=== PATIENT | male | born 1965 ===

== ENCOUNTER 2016-06-03 23:02 | Emergency (ER) | payer MEDICARE ==
[2016-06-03 23:16] VITALS: PULSE 99; RESP 18; TEMP 97.8; O2SAT 99
--- NOTE | 2016-06-04 00:27 | ED PDOC ---
HPI: Psych/Substance Abuse Time Seen by Provider: 06/03/16 23:19 Chief Complaint (Nursing): Psychiatric Evaluation Chief Complaint (Provider): medical eval History Per: Patient History/Exam Limitations: no limitations Onset/Duration Of Symptoms: Mins Current Symptoms Are (Timing): Still Present Additional Complaint(s): 50yo male brought to ED by [place] [employer] s/p finding patient pacing back and forth outside speaking non-sensical words and talking to himself. Patient offers no complaints at this time. Denies SI, HI, hallucinations. Patient is uncertain as to why he is in the ED. Past Medical History Reviewed: Historical Data, Nursing Documentation, Vital Signs Vital Signs: Last Vital Signs Temp 97.8 F 06/03/16 23:12 Pulse 99 H 06/03/16 23:12 Resp 18 06/03/16 23:12 BP 193/122 H 06/03/16 23:12 Pulse Ox 99 06/03/16 23:12 - Medical History PMH: Schizophrenia (schizoaffective disorder) Denies: Diabetes, Hepatitis, HIV, HTN, Seizures, Sexually Transmitted Disease - Surgical History Surgical History: No Surg Hx - Family History Family History: States: No Known Family Hx - Home Medications Home Medications: Ambulatory Orders Medication Instructions Recorded No Known Home Med [No Known Home 11/13/14 Med] - Allergies Allergies/Adverse Reactions: Allergies Allergy/AdvReac Type Severity Reaction Status Date / Time No Known Allergies Allergy Verified 03/19/15 14:04 Review of Systems ROS Statement: Except As Marked, All Systems Reviewed And Found Negative Psych: Positive for: Other (no HI, no hallucinations ). Negative for: Suicidal ideation Physical Exam - Reviewed Nursing Documentation Reviewed: Yes Vital Signs Reviewed: Yes - Physical Exam Appears: Positive for: Well, No Acute Distress Head Exam: Positive for: ATRAUMATIC, NORMAL INSPECTION, NORMOCEPHALIC Skin: Positive for: Normal Color, Warm, Dry Eye Exam: Positive for: Normal appearance, EOMI, PERRL ENT: Positive for: Normal ENT Inspection Neck: Positive for: Normal, Painless ROM, Supple Cardiovascular/Chest: Positive for: Regular Rate, Rhythm. Negative for: Murmur , Tachycardia Respiratory: Positive for: Normal Breath Sounds. Negative for: Wheezing, Respiratory Distress Gastrointestinal/Abdominal: Positive for: Normal Exam, Bowel Sounds, Soft. Negative for: Tenderness Back: Positive for: Normal Inspection. Negative for: L CVA Tenderness, R CVA Tenderness Extremity: Positive for: Normal ROM. Negative for: Deformity, Swelling Neurologic/Psych: Positive for: Alert, Oriented - ECG O2 Sat by Pulse Oximetry: 99 Pulse Ox Interpretation: Normal (RA) Medical Decision Making Medical Decision Makin: Impression: 50yo male brought by [facility] for eval of bizarre behavior Plan: alc serum, drug screen, accucheck reassess 0230: Patient remains asymptomatic in the ED with no complaints. Patient known to provider from previous visits and is at his baseline. Patient stable for d/c. Dx: schizoaffective disorder stable Scribe Attestation: Documented by Italo Martin acting as a scribe for Israel Bates MD. Provider Scribe Attestation: All medical record entries made by the Scribe were at my direction and personally dictated by me. I have reviewed the chart and agree that the record accurately reflects my personal performance of the history, physical exam, medical decision making, and the department course for this patient. I have also personally directed, reviewed, and agree with the discharge instructions and disposition. Disposition - Clinical Impression Clinical Impression: Schizoaffective disorder - Patient ED Disposition Is Patient to be Admitted: No - Disposition Referrals: [facility] [Outside] [facility] [Outside] Disposition: Routine/Home Disposition Time: 02:30 Condition: STABLE Instructions: Schizoaffective Disorder (ED) Print Language: COMORAN
[2016-06-04 02:21] VITALS: BP 157/105
== END 2016-06-04 06:21 | disposition home or self-care (01) ==
LOC: H.ER 23:02
DX: F25.9 Schizoaffective disorder, unspecified (principal)
CPT/HCPCS: 82948; 99283; G0480

== ENCOUNTER 2016-06-06 20:52 | Emergency (ER) | payer MEDICARE ==
[2016-06-06 21:13] VITALS: RESP 16; TEMP 97.3
--- NOTE | 2016-06-06 21:58 | ED PDOC ---
HPI: Psych/Substance Abuse Time Seen by Provider: 06/06/16 21:15 Chief Complaint (Nursing): Psychiatric Evaluation Chief Complaint (Provider): Psychiatric Evaluation History Per: Patient History/Exam Limitations: no limitations Suicide/Self Injury Attempted (Context): None Involuntary Hold By: None Additional Complaint(s): Dany Stein is a 50 year old male, with a past medical history inclusive of known schizoaffective disorder per previous records, who presents to the ED on 06/06/16 requesting that he be "checked". Upon evaluation, when asked why, patient begins making up nonsensical stories about his mother, the police and other topics in addition to what appears to be responding to internal stimuli. Denies any past medical history or acute medical complaints at this time, stating that he does not take any medications and "does not want any". PMD: non CPH Past Medical History Reviewed: Historical Data, Nursing Documentation, Vital Signs Vital Signs: Last Vital Signs Temp 97.3 F L 06/06/16 21:07 Pulse 100 H 06/06/16 21:07 Resp 16 06/06/16 21:07 BP Pulse Ox 98 06/06/16 21:07 - Medical History PMH: Schizophrenia (schizoaffective disorder) Denies: Diabetes, Hepatitis, HIV, HTN, Seizures, Sexually Transmitted Disease - Surgical History Surgical History: No Surg Hx - Family History Family History: States: Unknown Family Hx - Home Medications Home Medications: Ambulatory Orders Medication Instructions Recorded No Known Home Med [No Known Home 11/13/14 Med] - Allergies Allergies/Adverse Reactions: Allergies Allergy/AdvReac Type Severity Reaction Status Date / Time No Known Allergies Allergy Verified 03/19/15 14:04 Review of Systems Psych: Positive for: Other (wants to be checked out) Physical Exam - Reviewed Nursing Documentation Reviewed: Yes Vital Signs Reviewed: Yes - Physical Exam Appears: Positive for: Non-toxic, No Acute Distress Head Exam: Positive for: ATRAUMATIC, NORMOCEPHALIC Skin: Positive for: Normal Color, Warm, Dry Cardiovascular/Chest: Positive for: Regular Rate, Rhythm. Negative for: Murmur Respiratory: Positive for: Normal Breath Sounds. Negative for: Respiratory Distress Neurologic/Psych: Positive for: Alert, Mood/Affect (speaking with tangential thoughts and apparent reponses to internal stimuli) - ECG O2 Sat by Pulse Oximetry: 98 (RA) Pulse Ox Interpretation: Normal Medical Decision Making Medical Decision Makin:15 Upon review of previous records, patient is well known to ED for schizoaffective disorder and, as per a chart a few days ago appears to be at his baseline mental status but, as this his his 3rd visit in a couple of weeks will have Crisis evaluate. Vitals are normal. Initial Plan: * Crisis Evaluation Scribe Attestation: Documented by Carolann Street, acting as a scribe for Phil Melo PA-C. Provider Scribe Attestation: All medical record entries made by the Scribe were at my direction and personally dictated by me. I have reviewed the chart and agree that the record accurately reflects my personal performance of the history, physical exam, medical decision making, and the department course for this patient. I have also personally directed, reviewed, and agree with the discharge instructions and disposition. Patient medically cleared for psychiatric evaluation. no medical complaints. Crisis in for evaluation. it is believed that patient is at baseline. he offers no HI or SI. case discussed by crisis with Dr. Fabian and cleared for discharge. patient is happy to be leaving and is seen with steady gait. Disposition - Clinical Impression Clinical Impression: Schizophrenia - Patient ED Disposition Is Patient to be Admitted: No Counseled Patient/Family Regarding: Diagnosis, Need For Followup - Disposition Referrals: [facility] [Outside] [facility] [Outside] Disposition Time: 22:48 Condition: STABLE Instructions: Schizophrenia (ED), Schizoaffective Disorder (ED) Print Language: VIETNAMESE
[2016-06-06 22:39] VITALS: BP 148/79
[2016-06-06 23:04] VITALS: PULSE 90
[2016-06-07 00:10] VITALS: O2SAT 98
== END 2016-06-06 22:48 | disposition home or self-care (01) ==
LOC: H.ER 20:52
DX: F20.9 Schizophrenia, unspecified (principal)

== ENCOUNTER 2017-01-17 21:51 | Emergency (ER) | payer MEDICARE ==
[2017-01-17 22:01] VITALS: BP 152/87; PULSE 98; RESP 18; TEMP 98.2; O2SAT 98
--- NOTE | 2017-01-17 22:36 | ED PDOC ---
HPI: Psych/Substance Abuse Time Seen by Provider: 01/17/17 22:05 Chief Complaint (Nursing): Psychiatric Evaluation Chief Complaint (Provider): Bizarre Behavior ED Caveat: Altered Mental Status History Per: Patient, EMS History/Exam Limitations: clinical condition Additional Complaint(s): 51 year old male with history of schizoaffective disorder brought to the ED by EMS for evaluation of bizarre behavior. Patient was found speaking to himself nonsensically. Patient does not have any specific complaints at this time. He denies drugs or alcohol. Patient is a poor historian due to his mental status. Past Medical History Reviewed: Historical Data, Nursing Documentation, Vital Signs Vital Signs: Last Vital Signs Temp 98.2 F 01/17/17 21:56 Pulse 98 H 01/17/17 21:56 Resp 18 01/17/17 21:56 BP 152/87 H 01/17/17 21:56 Pulse Ox 98 01/17/17 21:56 - Medical History PMH: Schizophrenia (schizoaffective disorder) Denies: Diabetes, Hepatitis, HIV, HTN, Seizures, Sexually Transmitted Disease - Family History Family History: States: Unknown Family Hx - Social History Current smoker - smoking cessation education provided: No Alcohol: None Drugs: Denies - Home Medications Home Medications: Ambulatory Orders Medication Instructions Recorded No Known Home Med [No Known Home 11/13/14 Med] - Allergies Allergies/Adverse Reactions: Allergies Allergy/AdvReac Type Severity Reaction Status Date / Time No Known Allergies Allergy Verified 03/19/15 14:04 Review of Systems Review Of Systems: ROS cannot be obtained secondary to pt's inabilty to answer questions. (Mental Status) Physical Exam - Reviewed Nursing Documentation Reviewed: Yes Vital Signs Reviewed: Yes - Physical Exam Appears: Positive for: Well, Non-toxic, No Acute Distress Head Exam: Positive for: ATRAUMATIC, NORMOCEPHALIC Skin: Positive for: Normal Color, Warm, DRY Eye Exam: Positive for: EOMI, Normal appearance, PERRL Neck: Positive for: Normal, Painless ROM, Supple Cardiovascular/Chest: Positive for: Regular Rate, Rhythm. Negative for: Murmur Respiratory: Positive for: Normal Breath Sounds. Negative for: Respiratory Distress Gastrointestinal/Abdominal: Positive for: Normal Exam, Soft. Negative for: Tenderness Back: Positive for: Normal Inspection. Negative for: L CVA Tenderness, R CVA Tenderness, Other (midline tenderness) Extremity: Positive for: Normal ROM. Negative for: Pedal Edema, Deformity Neurologic/Psych: Positive for: Alert, Mood/Affect (Colorful), Gait, Other ( Patient appears internally preoccupied). Negative for: Motor/Sensory Deficits - Laboratory Results Result Diagrams: 01/17/17 22:30 01/17/17 22:30 - ECG O2 Sat by Pulse Oximetry: 98 Medical Decision Making Medical Decision Making: Impression: 51 year old male in need of crisis evaluation in setting of schizoaffective disorder. Plan: -Labs -Crisis eval 8223 Patient has been evaluated by crisis and was deemed stable for discharge. Dx: schizoaffective disorder ------- Scribe Attestation: Documented by Shankar Sarah, acting as a scribe for Israel Bates MD Provider Scribe Attestation: All medical record entries made by the Scribe were at my direction and personally dictated by me. I have reviewed the chart and agree that the record accurately reflects my personal performance of the history, physical exam, medical decision making, and the department course for this patient. I have also personally directed, reviewed, and agree with the discharge instructions and disposition. Disposition - Clinical Impression Clinical Impression: Schizoaffective disorder - Disposition Disposition: Routine/Home Disposition Time: 22:55 Condition: STABLE Instructions: Schizoaffective Disorder (ED) Forms: [employer] (Panamanian)
[2017-01-17 22:42] LABS: BASO # 0.1 K/uL (0.0-0.2); BASO % 0.6 % (0.0-2.0); EOS # 0.5 K/uL (0.0-0.7); EOS % 5.4 % (0.0-4.0); HEMATOCRIT 43.7 % (35.0-51.0); LYMPH # 2.1 K/uL (1.0-4.3); MEAN CELL VOLUME 91.6 fl (80.0-94.0); MEAN CORPUSCULAR HEMOGLOBIN 30.7 pg (27.0-31.0); MEAN CORPUSCULAR HGB CONC 33.5 g/dL (33.0-37.0); MEAN PLATELET VOLUME 7.6 fl (7.2-11.7); MONO # 0.8 K/uL (0.0-0.8); MONO % 9.1 % (0.0-10.0); NEUT # 5.8 K/uL (1.8-7.0); NEUT % 61.9 % (50.0-75.0); RED CELL DISTRIBUTION WIDTH 13.4 % (11.5-14.5); WHITE BLOOD COUNT 9.3 K/uL (4.8-10.8)
[2017-01-17 22:52] LABS: ALB/GLOB RATIO 1.2 (1.0-2.1); ALCOHOL SERUM < 10 mg/dl (0-10); ALKALINE PHOSPHATASE 103 U/L (38-126); ALT/SGPT 35 U/L (21-72); AST/SGOT 25 U/L (17-59); BILIRUBIN,TOTAL 0.3 mg/dl (0.2-1.3); BLOOD UREA NITROGEN 15 mg/dl (9-20); CALCIUM 8.7 mg/dL (8.4-10.2); CARBON DIOXIDE 28 mmol/L (22-30); CHLORIDE 104 mmol/L (98-107); GFR AFRICAN-AMERICAN > 60; GLUCOSE,RANDOM 100 mg/dL (75-110); POTASSIUM 3.9 MMOL/L (3.6-5.0); SODIUM 142 mmol/l (132-148); TOTAL PROTEIN 7.9 G/DL (6.3-8.2)
== END 2017-01-17 23:38 | disposition home or self-care (01) ==
LOC: H.ER 21:51
DX: F20.9 Schizophrenia, unspecified (principal)
CPT/HCPCS: 80053; 85025; 99282; G0480

== ENCOUNTER 2017-03-10 14:35 | Emergency (ER) | payer MEDICARE ==
[2017-03-10 14:43] VITALS: O2SAT 98
--- NOTE | 2017-03-10 15:13 | ED PDOC ---
HPI: General Adult Time Seen by Provider: 03/10/17 15:03 Chief Complaint (Nursing): Medical Clearance Chief Complaint (Provider): Medical evaluation for incarceration History Per: Patient, EMS History/Exam Limitations: no limitations Onset/Duration Of Symptoms: Days (today) Additional Complaint(s): Pt. had a warrant for his arrest and found walking the street so was arrested. Pt. denies any suicidal or homicidal ideation. No drugs or etoh. Was at AA meeting today. No pain, nausea, weakness, dizziness. Past Medical History Reviewed: Historical Data, Nursing Documentation, Vital Signs Vital Signs: Last Vital Signs Temp 98.0 F 03/10/17 14:42 Pulse 91 H 03/10/17 14:42 Resp 16 03/10/17 14:42 BP 134/86 03/10/17 14:42 Pulse Ox 98 03/10/17 15:16 - Medical History PMH: Schizophrenia (schizoaffective disorder) Denies: Diabetes, Hepatitis, HIV, HTN, Seizures, Sexually Transmitted Disease - Family History Family History: States: Unknown Family Hx - Social History Current smoker - smoking cessation education provided: No Alcohol: None Drugs: Denies - Home Medications Home Medications: Ambulatory Orders Medication Instructions Recorded No Known Home Med [No Known Home 11/13/14 Med] - Allergies Allergies/Adverse Reactions: Allergies Allergy/AdvReac Type Severity Reaction Status Date / Time No Known Allergies Allergy Verified 03/19/15 14:04 Review of Systems ROS Statement: Except As Marked, All Systems Reviewed And Found Negative Physical Exam - Reviewed Nursing Documentation Reviewed: Yes Vital Signs Reviewed: Yes - Physical Exam Appears: Positive for: Well, Non-toxic, No Acute Distress Head Exam: Positive for: ATRAUMATIC, NORMAL INSPECTION, NORMOCEPHALIC Skin: Positive for: Normal Color, Warm, DRY Eye Exam: Positive for: EOMI, Normal appearance, PERRL ENT: Positive for: Normal ENT Inspection Neck: Positive for: Normal, Painless ROM Cardiovascular/Chest: Positive for: Regular Rate, Rhythm Respiratory: Positive for: CNT, Normal Breath Sounds Gastrointestinal/Abdominal: Positive for: Normal Exam, Bowel Sounds, Soft. Negative for: Tenderness Back: Positive for: Normal Inspection. Negative for: L CVA Tenderness, R CVA Tenderness Extremity: Positive for: Normal ROM. Negative for: Tenderness, Pedal Edema Neurologic/Psych: Positive for: Alert, music producer II-XII, Oriented. Negative for: Motor/Sensory Deficits - ECG O2 Sat by Pulse Oximetry: 98 Pulse Ox Interpretation: Normal - Progress ED Course And Treament: 1557: Crisis saw pt. and does not meet criteria for admit. Pt. medically stable. Will dc. AAOx3. Pain free. Tolerated PO. Disposition - Clinical Impression Clinical Impression: Schizoaffective disorder - Patient ED Disposition Is Patient to be Admitted: No Counseled Patient/Family Regarding: Diagnosis, Need For Followup - Disposition Referrals: [facility] [Outside] - 03/11/17 Disposition: Routine/Home Disposition Time: 16:00 Condition: STABLE Additional Instructions: Return if not better in 3 days. You are medically and psychiatrically cleared at this time for incarceration. Instructions: Schizoaffective Disorder (ED)
[2017-03-10 16:14] VITALS: BP 130/81; PULSE 87; RESP 18; TEMP 98
== END 2017-03-10 16:15 ==
LOC: H.ER 14:35
DX: F25.9 Schizoaffective disorder, unspecified

== ENCOUNTER 2017-04-29 21:19 | Emergency (ER) | payer MEDICARE ==
[2017-04-29 21:43] VITALS: BP 138/61; PULSE 94; RESP 17; TEMP 98; O2SAT 97
--- NOTE | 2017-04-29 22:00 | ED PDOC ---
HPI: CCC, URI, Sore Throat Time Seen by Provider: 04/29/17 21:50 Chief Complaint (Nursing): Flu-like Symptoms Chief Complaint (Provider): Cough History Per: Patient History/Exam Limitations: no limitations Onset/Duration Of Symptoms: Days (today) Current Symptoms Are (Timing): Still Present Additional Complaint(s): Cough, nasal congestion, runny nose. Is homeless and they won't take him at assisted today so came here. No weakness. Feels sleepy off and on since he has not been able to sleep due to no place to go. No abd pain, nausea, vomit, diarrhea, weakness. No fever. No drugs or etoh. No suicidal or homicidal thoughts. Past Medical History Vital Signs: Last Vital Signs Temp 98.0 F 04/29/17 21:41 Pulse 94 H 04/29/17 21:41 Resp 17 04/29/17 21:41 BP 138/61 04/29/17 21:41 Pulse Ox 97 04/29/17 21:41 - Medical History PMH: Schizophrenia (schizoaffective disorder) Denies: Hepatitis, HIV, HTN, Seizures, Sexually Transmitted Disease - Family History Family History: States: Unknown Family Hx - Home Medications Home Medications: Ambulatory Orders Medication Instructions Recorded No Known Home Med [No Known Home 11/13/14 Med] - Allergies Allergies/Adverse Reactions: Allergies Allergy/AdvReac Type Severity Reaction Status Date / Time No Known Allergies Allergy Verified 04/29/17 21:43 Review of Systems Constitutional: Negative for: Fever, Weakness ENT: Positive for: Nose Pain, Nose Discharge, Nose Congestion Cardiovascular: Negative for: Chest Pain Respiratory: Positive for: Cough. Negative for: Shortness of Breath Gastrointestinal: Negative for: Nausea, Vomiting, Abdominal Pain Genitourinary Male: Negative for: Dysuria Musculoskeletal: Negative for: Neck Pain, Arm Pain Skin: Negative for: Rash Neurological: Negative for: Weakness, Dizziness Physical Exam - Reviewed Nursing Documentation Reviewed: Yes Vital Signs Reviewed: Yes - Physical Exam Appears: Positive for: Non-toxic, No Acute Distress Head Exam: Positive for: ATRAUMATIC, NORMAL INSPECTION, NORMOCEPHALIC Skin: Positive for: Normal Color, Warm, DRY Eye Exam: Positive for: EOMI, Normal appearance, PERRL ENT: Positive for: Nasal Congestion Neck: Positive for: Normal, Painless ROM, Supple Cardiovascular/Chest: Positive for: Regular Rate, Rhythm Respiratory: Positive for: Normal Breath Sounds Back: Positive for: Normal Inspection Extremity: Positive for: Normal ROM. Negative for: Tenderness, Pedal Edema Neurologic/Psych: Positive for: Alert, cfo II-XII, Oriented. Negative for: Motor/Sensory Deficits, Aphasia, Facial Droop - ECG O2 Sat by Pulse Oximetry: 97 Pulse Ox Interpretation: Normal - Progress ED Course And Treament: 2200: Stable. AAOx3. Pain free. Tolerated PO. Fu with pcp. Disposition - Clinical Impression Clinical Impression: URI (upper respiratory infection) - Patient ED Disposition Is Patient to be Admitted: No Counseled Patient/Family Regarding: Diagnosis, Need For Followup - Disposition Referrals: [facility] [Outside] - 04/30/17 Disposition: Routine/Home Disposition Time: 22:01 Condition: STABLE Additional Instructions: Return if not better in 3 days. Instructions: Upper Respiratory Infection (ED)
== END 2017-04-29 23:15 | disposition home or self-care (01) ==
LOC: H.ER 21:19
DX: J06.9 Acute upper respiratory infection, unspecified (principal); Z59.0 Homelessness

== ENCOUNTER 2017-05-26 23:27 | Emergency (ER) | payer MEDICARE ==
--- NOTE | 2017-05-27 00:06 | ED PDOC ---
HPI: Psych/Substance Abuse Time Seen by Provider: 05/26/17 23:35 Chief Complaint (Nursing): Psychiatric Evaluation Chief Complaint (Provider): EDP Additional Complaint(s): 51 y/o male history of schizoaffective disorder brought in by EMS for evaluation. Patient was trying to get in to mother's home but she would not let him in so there was an argument and police were called. Patient with nonsensical stories about mother and school and police, which appears to be his baseline as per chart/previous visits. Denies suicidal/homicidal ideations, drug /alcohol use, acute physical complaints. Past Medical History Reviewed: Historical Data, Nursing Documentation, Vital Signs Vital Signs: Last Vital Signs Temp Pulse 106 H 05/26/17 23:29 Resp 20 05/26/17 23:29 BP 199/117 H 05/26/17 23:29 Pulse Ox 99 05/26/17 23:29 - Medical History PMH: Diabetes (noncompliant), Schizophrenia (schizoaffective disorder) Denies: Hepatitis, HIV, HTN, Seizures, Sexually Transmitted Disease - Surgical History Surgical History: No Surg Hx - Family History Family History: States: Unknown Family Hx - Home Medications Home Medications: Ambulatory Orders Medication Instructions Recorded No Known Home Med [No Known Home 11/13/14 Med] - Allergies Allergies/Adverse Reactions: Allergies Allergy/AdvReac Type Severity Reaction Status Date / Time No Known Allergies Allergy Verified 05/26/17 23:29 Review of Systems ROS Statement: Except As Marked, All Systems Reviewed And Found Negative Psych: Positive for: Psychosis Physical Exam - Reviewed Nursing Documentation Reviewed: Yes Vital Signs Reviewed: Yes - Physical Exam Appears: Positive for: Well, Non-toxic, No Acute Distress Head Exam: Positive for: ATRAUMATIC, NORMAL INSPECTION, NORMOCEPHALIC Skin: Positive for: Normal Color Eye Exam: Positive for: Normal appearance ENT: Positive for: Normal ENT Inspection Cardiovascular/Chest: Positive for: Regular Rate, Rhythm Respiratory: Positive for: Normal Breath Sounds Gastrointestinal/Abdominal: Positive for: Normal Exam Back: Positive for: Normal Inspection Extremity: Positive for: Normal ROM Neurologic/Psych: Positive for: Alert, Oriented - ECG O2 Sat by Pulse Oximetry: 99 - Progress ED Course And Treament: accucheck, crisis eval Patient evaluated by shed workers supervisor; does not meet criteria for admission at this time as per Dr. Bruner. Patient was educated on elevated blood sugar and advised to follow up at [facility]. Patient stable for discharge Return precautions given Disposition - Clinical Impression Clinical Impression: Schizoaffective disorder, Hyperglycemia - Patient ED Disposition Is Patient to be Admitted: No Counseled Patient/Family Regarding: Studies Performed, Diagnosis, Need For Followup - Disposition Referrals: [facility] [Outside] Disposition: Routine/Home Disposition Time: 02:39 Condition: STABLE Instructions: Schizoaffective Disorder, Hyperglycemia, Adult Forms: [employer] ([place])
[2017-05-27 02:31] VITALS: BP 134/85; PULSE 88; RESP 18; TEMP 98.4
[2017-05-27 02:36] VITALS: O2SAT 99
== END 2017-05-27 03:05 | disposition home or self-care (01) ==
LOC: H.ER 23:27
DX: E11.65 Type 2 diabetes mellitus with hyperglycemia (principal); F25.9 Schizoaffective disorder, unspecified; Z91.14 Patient's other noncompliance with medication regimen

== ENCOUNTER 2017-10-19 04:18 | Emergency (ER) | payer MEDICARE ==
[2017-10-19 05:17] LABS: BASO # 0.1 K/uL (0.0-0.2); BASO % 0.7 % (0.0-2.0); EOS # 0.4 K/uL (0.0-0.7); EOS % 4.5 % (0.0-4.0); HEMOGLOBIN 14.1 g/dL (12.0-18.0); LYMPH # 1.4 K/uL (1.0-4.3); LYMPH % 14.9 % (20.0-40.0); MEAN CELL VOLUME 91.8 fl (80.0-94.0); MEAN CORPUSCULAR HEMOGLOBIN 30.8 pg (27.0-31.0); MEAN CORPUSCULAR HGB CONC 33.6 g/dL (33.0-37.0); MEAN PLATELET VOLUME 7.7 fl (7.2-11.7); MONO # 0.8 K/uL (0.0-0.8); MONO % 8.4 % (0.0-10.0); NEUT # 6.8 K/uL (1.8-7.0); NEUT % 71.5 % (50.0-75.0); NRBC % 0.1 % (0.0-0.0); RBC 4.57 Mil/uL (4.40-5.90); RED CELL DISTRIBUTION WIDTH 13.4 % (11.5-14.5); WHITE BLOOD COUNT 9.5 K/uL (4.8-10.8)
[2017-10-19 05:25] LABS: BLOOD UREA NITROGEN 12 mg/dl (9-20); CALCIUM 9.3 mg/dL (8.4-10.2); GFR AFRICAN-AMERICAN > 60; GFR NON-AFRICAN AMERICAN > 60
[2017-10-19 05:35] LABS: ACETAMINOPHEN < 10.0 ug/ml (10.0-30.0); SALICYLATE < 1.0 mg/dl
--- NOTE | 2017-10-19 05:45 | ED PDOC ---
HPI: Psych/Substance Abuse Time Seen by Provider: 10/19/17 04:28 Chief Complaint (Nursing): Substance Abuse Chief Complaint (Provider): Medical and Psychiatric clearance History Per: Patient History/Exam Limitations: no limitations Additional Complaint(s): Patient is a 52 y/o male with unknown medical history who presents to the ED for medical and psychiatric clearance. Patient has no medical complaints and denies homicidal or suicidal ideation. Past Medical History Reviewed: Historical Data, Nursing Documentation, Vital Signs Vital Signs: Last Vital Signs Temp 97.6 F 10/19/17 04:25 Pulse 82 10/19/17 04:25 Resp 16 10/19/17 04:25 BP 167/102 H 10/19/17 04:25 Pulse Ox 100 10/19/17 04:25 - Medical History PMH: Diabetes (noncompliant), Schizophrenia (schizoaffective disorder) Denies: Hepatitis, HIV, HTN, Seizures, Sexually Transmitted Disease - Family History Family History: States: Unknown Family Hx - Home Medications Home Medications: Ambulatory Orders Medication Instructions Recorded No Known Home Med [No Known Home 11/13/14 Med] - Allergies Allergies/Adverse Reactions: Allergies Allergy/AdvReac Type Severity Reaction Status Date / Time No Known Allergies Allergy Verified 10/19/17 04:24 Review of Systems ROS Statement: Except As Marked, All Systems Reviewed And Found Negative Constitutional: Negative for: Fever Psych: Negative for: Suicidal ideation Physical Exam - Reviewed Nursing Documentation Reviewed: Yes Vital Signs Reviewed: Yes - Physical Exam Appears: Positive for: Non-toxic, No Acute Distress Head Exam: Positive for: ATRAUMATIC, NORMOCEPHALIC Skin: Positive for: Normal Color, Warm, Dry Eye Exam: Positive for: EOMI, Normal appearance, PERRL Neck: Positive for: Normal, Painless ROM, Supple Cardiovascular/Chest: Positive for: Regular Rate, Rhythm Respiratory: Positive for: CNT, Normal Breath Sounds Gastrointestinal/Abdominal: Positive for: Normal Exam, Soft. Negative for: Tenderness Back: Positive for: Normal Inspection. Negative for: L CVA Tenderness, R CVA Tenderness Extremity: Positive for: Normal ROM. Negative for: Pedal Edema, Deformity Neurologic/Psych: Positive for: Alert, Oriented (x3), Mood/Affect (strange), Other (occasionally rambles incoherently). Negative for: Motor/Sensory Deficits - Laboratory Results Result Diagrams: 10/19/17 05:14 10/19/17 05:14 - ECG O2 Sat by Pulse Oximetry: 100 (RA) Pulse Ox Interpretation: Normal Medical Decision Making Medical Decision Making: Time: 04:39 A/P: 52 y/o male presenting for med and psych clearance. Patient is not in acute distress and is not in apparent risk of danger to himself or others. Will obtain medical and psychiatric clearance for incarceration --Crisis Eval --Drug screen 545 Patient is medically cleared, psychiatrically cleared by crisis. ----- Scribe Attestation: Documented by Constantine Cabrera, acting as a scribe for Jose Luis Tavarez MD. Provider Scribe Attestation: All medical record entries made by the Scribe were at my direction and personally dictated by me. I have reviewed the chart and agree that the record accurately reflects my personal performance of the history, physical exam, medical decision making, and the department course for this patient. I have also personally directed, reviewed, and agree with the discharge instructions and disposition. Disposition - Clinical Impression Clinical Impression: Medical clearance for incarceration, Schizophrenia, Adjustment disorder - Disposition Referrals: [facility] [Outside] Disposition: Routine/Home Disposition Time: 05:45 Condition: GOOD Additional Instructions: Patient is medically and psychiatrically cleared for incarceration. Instructions: Schizophrenia, Adjustment Disorder Forms: [employer] (Turkmen)
[2017-10-19 05:47] VITALS: BP 149/90; PULSE 70; RESP 18; TEMP 97.9
[2017-10-19 05:48] VITALS: O2SAT 100
== END 2017-10-19 05:47 ==
LOC: H.ER 04:18
DX: F20.9 Schizophrenia, unspecified (principal); F43.20 Adjustment disorder, unspecified; E11.9 Type 2 diabetes mellitus without complications
CPT/HCPCS: 80048; 85025; 99282; G0480

== ENCOUNTER 2017-11-12 08:17 | Emergency (ER) | payer MEDICARE ==
[2017-11-12 08:20] VITALS: BMI 28.3
[2017-11-12 08:21] VITALS: RESP 20; TEMP 98.3
[2017-11-12 08:45] VITALS: BP 144/98; PULSE 95; O2SAT 97
[2017-11-12 09:22] LABS: BASO # 0.1 K/uL (0.0-0.2); BASO % 0.7 % (0.0-2.0); EOS # 0.2 K/uL (0.0-0.7); EOS % 1.9 % (0.0-4.0); HEMOGLOBIN 16.5 g/dL (12.0-18.0); LYMPH % 9.4 % (20.0-40.0); MEAN CELL VOLUME 92.3 fl (80.0-94.0); MEAN CORPUSCULAR HEMOGLOBIN 30.7 pg (27.0-31.0); MEAN CORPUSCULAR HGB CONC 33.2 g/dL (33.0-37.0); MEAN PLATELET VOLUME 8.5 fl (7.2-11.7); MONO # 0.5 K/uL (0.0-0.8); MONO % 5.2 % (0.0-10.0); NEUT # 8.7 K/uL (1.8-7.0); NEUT % 82.8 % (50.0-75.0); PLATELET COUNT 203 K/uL (130-400); RBC 5.39 Mil/uL (4.40-5.90); RED CELL DISTRIBUTION WIDTH 14.1 % (11.5-14.5); WHITE BLOOD COUNT 10.5 K/uL (4.8-10.8)
[2017-11-12 09:44] LABS: ALB/GLOB RATIO 1.3 (1.0-2.1); ALBUMIN 4.5 g/dL (3.5-5.0); ALT/SGPT 30 U/L (21-72); AST/SGOT 25 U/L (17-59); BLOOD UREA NITROGEN 10 mg/dl (9-20); CALCIUM 9.5 mg/dL (8.4-10.2); GFR NON-AFRICAN AMERICAN > 60
--- NOTE | 2017-11-12 09:47 | CT ---
Date of service: 11/12/2017 PROCEDURE: CT HEAD WITHOUT CONTRAST. HISTORY: r/o ICH COMPARISON: 03/20/2008 TECHNIQUE: Axial computed tomography images were obtained through the head/brain without intravenous contrast. Radiation dose: Total exam DLP = 1847.84 mGy-cm. This CT exam was performed using one or more of the following dose reduction techniques: Automated exposure control, adjustment of the mA and/or kV according to patient size, and/or use of iterative reconstruction technique. FINDINGS: HEMORRHAGE: No intracranial hemorrhage. BRAIN: No mass effect or edema. No atrophy or chronic microvascular ischemic changes. VENTRICLES: Unremarkable. No hydrocephalus. CALVARIUM: Unremarkable. PARANASAL SINUSES: Unremarkable as visualized. No significant inflammatory changes. MASTOID AIR CELLS: Unremarkable as visualized. No inflammatory changes. OTHER FINDINGS: None. IMPRESSION: Normal CT of the Head. No acute intracranial hemorrhage.
--- NOTE | 2017-11-12 09:50 | CT ---
Date of service: 11/12/2017 PROCEDURE: CT Cervical Spine without contrast HISTORY: trauma r/o fx COMPARISON: None available. TECHNIQUE: Axial computed tomography images were obtained of the cervical spine without the use of intravenous contrast. Coronal and sagittal reformatted images were created and reviewed. Radiation dose: Total exam DLP = 334.77 mGy-cm. This CT exam was performed using one or more of the following dose reduction techniques: Automated exposure control, adjustment of the mA and/or kV according to patient size, and/or use of iterative reconstruction technique. FINDINGS: VERTEBRAE: The vertebral bodies are maintained in height. Normal alignment is maintained. There is reversal of normal lordotic curvature of the cervical spine which may indicate muscular spasm. The atlantoaxial articulation and odontoid process are intact. DISCS/SPINAL CANAL/NEURAL FORAMINA: There is narrowing of the C4-5, C5-6 and C6-7 intervertebral disc spaces consistent with degenerative disc disease. Bilateral neural foraminal stenosis is noted at these affected levels. There is mild central spinal stenosis noted at the C4-5 and C5-6 levels. Delete PARASPINAL SOFT TISSUES: Unremarkable. OTHER FINDINGS: None. IMPRESSION: No fracture/ dislocation. Multilevel degenerative disc disease with multilevel bilateral neural foraminal stenosis and mild central spinal stenosis at C4-5 and C5-6. Possible muscular spasm.
--- NOTE | 2017-11-12 09:57 | ED PDOC ---
HPI: General Adult Time Seen by Provider: 11/12/17 08:29 Chief Complaint (Nursing): Medical Clearance Chief Complaint (Provider): medical and psychiatric clearance History Per: Patient History/Exam Limitations: no limitations Current Symptoms Are (Timing): Still Present Recently: Seen In ED Additional Complaint(s): 52yo male arrives under police custody for medical and psychiatric clearance. Patient is uncooperative, displaying anger towards police and not providing further history to MD. Per report from police was resisting arrest and struck back of head on ground. Past Medical History Reviewed: Historical Data, Nursing Documentation, Vital Signs Vital Signs: Last Vital Signs Temp 98.3 F 11/12/17 08:36 Pulse 95 H 11/12/17 08:36 Resp 20 11/12/17 08:36 BP 144/98 H 11/12/17 08:36 Pulse Ox 97 11/12/17 09:57 - Medical History PMH: Diabetes (noncompliant), Schizophrenia (schizoaffective disorder) Denies: Hepatitis, HIV, HTN, Seizures, Sexually Transmitted Disease - Family History Family History: States: Unknown Family Hx - Home Medications Home Medications: Ambulatory Orders Medication Instructions Recorded No Known Home Med [No Known Home 11/13/14 Med] - Allergies Allergies/Adverse Reactions: Allergies Allergy/AdvReac Type Severity Reaction Status Date / Time No Known Allergies Allergy Verified 11/12/17 08:36 Review of Systems Review Of Systems: ROS cannot be obtained secondary to pt's inabilty to answer questions. (uncooperative) Physical Exam - Reviewed Nursing Documentation Reviewed: Yes Vital Signs Reviewed: Yes - Physical Exam Appears: Positive for: Well, Non-toxic, No Acute Distress Head Exam: Positive for: NORMOCEPHALIC. Negative for: ATRAUMATIC (contusions posterior scalp) Skin: Positive for: Normal Color, Warm, DRY Eye Exam: Positive for: EOMI, Normal appearance, PERRL ENT: Positive for: Normal ENT Inspection Neck: Positive for: Normal, Painless ROM. Negative for: Pain On Movement Of Neck Cardiovascular/Chest: Positive for: Regular Rate, Rhythm Respiratory: Positive for: CNT, Normal Breath Sounds Gastrointestinal/Abdominal: Positive for: Soft. Negative for: Tenderness Back: Positive for: Normal Inspection. Negative for: L CVA Tenderness, R CVA Tenderness, Vertebral Tenderness Extremity: Positive for: Normal ROM. Negative for: Tenderness, Deformity, Swelling Neurologic/Psych: Positive for: Alert, real estate consultant II-XII, Oriented, Mood/Affect ( agressive ). Negative for: Motor/Sensory Deficits, Facial Droop - Laboratory Results Result Diagrams: 11/12/17 09:09 11/12/17 09:09 - ECG O2 Sat by Pulse Oximetry: 97 Medical Decision Making Medical Decision Making: labs obtained and clinically unremarkable etoh neg CT brain and CSpine obtained and report reviewed Crisis eval performed and cleared for DC Dr Castro DC to police custody Disposition - Clinical Impression Clinical Impression: Schizoaffective disorder, Head injury - Patient ED Disposition Is Patient to be Admitted: No - Disposition Referrals: [facility] [Outside] Disposition: Discharged/Transfer to Law Enforcement Disposition Time: 11:30 Condition: STABLE Additional Instructions: Medically and psychiatrically stable for incarceration/police custody at this time. Instructions: General (DC), Closed Head Injury, Schizoaffective Disorder (DC) Forms: [employer] (Bolivian) Print Language: ARGENTINE
[2017-11-12 10:04] LABS: BARBITURATES, UR NEGATIVE (NEGATIVE); BENZODIAZEPINES, UR NEGATIVE (NEGATIVE); OPIATES, UR NEGATIVE (NEGATIVE); PHENCYCLIDINE, UR NEGATIVE (NEGATIVE)
[2017-11-12 10:39] LABS: BASOPHIL 1 % (0-2); EOSINOPHIL 2 % (0-7); LYMPHOCYTE 7 % (20-50); MONOCYTE 4 % (0-10); NEUTROPHIL 85 % (42-75); PLATELET ESTIMATE NORMAL (NORMAL); REACTIVE LYMPHOCYTES 1 % (0-0); TOTAL CELLS COUNTED 100
[2017-11-12 10:40] LABS: PLATELET CLUMPS PRESENT; TOXIC GRANULATION PRESENT
== END 2017-11-12 12:25 ==
LOC: H.ER 08:17
DX: F25.9 Schizoaffective disorder, unspecified (principal); S09.90XA Unspecified injury of head, initial encounter; Y35.813A Legal intervention involving manhandling, suspect injured, initial encounter; Y92.89 Other specified places as the place of occurrence of the external cause; E11.9 Type 2 diabetes mellitus without complications
CPT/HCPCS: 70450; 72125; 80053; 82948; 85025; 99282; G0480

== ENCOUNTER 2018-05-10 09:57 | Emergency (ER) | payer MEDICARE ==
[2018-05-10 09:57] VITALS: BMI 28.3
[2018-05-10] MEDS ORDERED: Albuterol-Ipratrop 3 mg / 0.5 (3 ml) UD ONE ×3 (10:40→13:51)
[2018-05-10] MEDS ORDERED: Albuterol-Ipratrop 3 mg / 0.5 (3 ml) UD INH STA ×5 (10:50→13:29)
[2018-05-10] MEDS ORDERED: methylPREDNISolone 125 MG in Sodium Chloride 0.9% 50 ML IV STA (10:58)
--- NOTE | 2018-05-10 11:04 | ED PDOC ---
HPI: General Adult Chief Complaint (Provider): sob History Per: Patient (52 y/o male h/o ASthma/copd with sob and nonproductive cough x 3 days. NO fevers or chills. No vomiting. Does not have inhaler at home.) <Lucille Zimmerman B - Last Filed: 05/10/18 19:06> <Lalitha Horvath Y - Last Filed: 05/11/18 12:16> Time Seen by Provider: 05/10/18 11:03 Chief Complaint (Nursing): Respiratory Distress Against Medical Advice - AMA Patient Left Against Medical Advice: The patient declines admission to the hospital and wishes to leave the Emergency Department. This action is against my medical advice. This decision was made with informed refusal. The patient was told that admission to the hospital is necessary. Explanation of the reasons why were discussed. The risks of leaving were explained to the patient and include, but are not limited to, worsening of known or currently unknown conditions, permanent disability and from undiagnosed or untreated conditions. The patient has the capacity to make this informed decision and understands my explanation of the current medical problem and risks of leaving. The patient voluntarily accepts these risks and signed an AMA form documenting o ur conversation. The patient was given the opportunity to ask questions and reconsider. The patient was encouraged to return to the Emergency Department at any time for further care. <Lucille Zimmerman - Last Filed: 05/10/18 19:06> - AMA Patient Left Against Medical Advice: The patient declines admission to the hospital and wishes to leave the Emergency Department. This action is against my medical advice. This decision was made with informed refusal. The patient was told that admission to the hospital is necessary. Explanation of the reasons why were discussed. The risks of leaving were explained to the patient and include, but are not limited to, worsening of known or currently unknown conditions, permanent disability and from undiagnosed or untreated conditions. The patient has the capacity to make this informed decision and understands my explanation of the current medical problem and risks of leaving. The patient voluntarily accepts these risks and signed an AMA form documenting our conversation. The patient was given the opportunity to ask questions and reconsider. The patient was encouraged to return to the Emergency Department at any time for further care. <Lalitha Horvath Y - Last Filed: 05/11/18 12:16> Supervising Attending Note - Supervising Attending Note The Documented history was done by the: Physician Oil Field Equipment Mechanic The documented physical exam was done by the: Physician Oil Field Equipment Mechanic The documented procedures were done by the: Physician Oil Field Equipment Mechanic - Attestation: I have personally seen and examined this patient.: Yes I have fully participated in the care of the patient.: Yes I have reviewed all pertinent clinical information, including history, physical exam and plan: Yes - Notes: Notes:: pt seen and evaluated by me yesterday upon pt arrival in the ER 05/10/18) pt was sob, presumably bad asthma, needed BIPAP and admitted to ICU. agree with Lucille Zimmerman plan. <Lalitha Horvath Y - Last Filed: 05/11/18 12:16> Past Medical History Reviewed: Historical Data, Nursing Documentation, Vital Signs Vital Signs: Last Vital Signs Temp 98.3 F 05/10/18 10:05 Pulse 100 H 05/10/18 10:05 Resp 30 H 05/10/18 10:41 BP 176/73 H 05/10/18 10:05 Pulse Ox 95 05/10/18 10:41 - Medical History PMH: Asthma, Diabetes (noncompliant), Schizophrenia (schizoaffective disorder) Denies: Hepatitis, HIV, HTN, Seizures, Sexually Transmitted Disease - Family History Family History: States: Unknown Family Hx - Immunization History Hx Tetanus Toxoid Vaccination: No Hx Influenza Vaccination: No Hx Pneumococcal Vaccination: No <Lucille Zimmerman B - Last Filed: 05/10/18 19:06> Vital Signs: Last Vital Signs Temp 98.1 F 05/10/18 14:00 Pulse 89 05/10/18 15:11 Resp 21 05/10/18 14:00 BP 140/70 05/10/18 14:00 Pulse Ox 95 05/10/18 19:06 <Lalitha Horvath Y - Last Filed: 05/11/18 12:16> - Home Medications Home Medications: Ambulatory Orders Medication Instructions Recorded Albuterol 0.083% [Albuterol 0.083% 2.5 mg IH Q8 PRN #100 neb 05/10/18 Inhal Darcy (2.5 mg/3 ml) UD] Albuterol HFA [Ventolin HFA 90 2 puff IH [id number] PRN #1 inh 05/10/18 mcg/actuation (8 g)] Mask, Face [Nebulizer Aerosol Mask 1 dev XX PRN PRN #1 dev 05/10/18 Adult] Nebulizer [Aeroeclipse II] 1 each MC Q8 PRN #1 each 05/10/18 predniSONE [Prednisone] 3 tab PO DAILY #12 tab 05/10/18 - Allergies Allergies/Adverse Reactions: Allergies Allergy/AdvReac Type Severity Reaction Status Date / Time No Known Allergies Allergy Verified 11/12/17 08:36 Review of Systems ROS Statement: Except As Marked, All Systems Reviewed And Found Negative Respiratory: Positive for: Cough, Shortness of Breath <Lucille Zimmerman B - Last Filed: 05/10/18 19:06> Physical Exam - Reviewed Nursing Documentation Reviewed: Yes Vital Signs Reviewed: Yes - Physical Exam Appears: Positive for: Well, Non-toxic, No Acute Distress, In Acute Distress (moderate respiratory distress) Head Exam: Positive for: ATRAUMATIC, NORMAL INSPECTION, NORMOCEPHALIC Skin: Positive for: Normal Color, Warm, DRY Eye Exam: Positive for: EOMI, Normal appearance, PERRL ENT: Positive for: Normal ENT Inspection Neck: Positive for: Normal, Painless ROM Cardiovascular/Chest: Positive for: Regular Rate, Rhythm Respiratory: Positive for: Decreased Breath Sounds Gastrointestinal/Abdominal: Positive for: Normal Exam, Soft Back: Positive for: Normal Inspection Extremity: Positive for: Normal ROM Neurologic/Psych: Positive for: Alert, Oriented <Lucille Zimmerman B - Last Filed: 05/10/18 19:06> - Laboratory Results Result Diagrams: 05/10/18 12:00 05/10/18 12:00 - ECG O2 Sat by Pulse Oximetry: 95 - Progress ED Course And Treament: solumedrol 125 mg iv x 1 dose Duoneb x 3 MG 2 gm iv ordered. Patient states he feels improved but looks persistently sob. Bipap ordered at 11:50am Abg ordered 30 minutes after start of bipap and compared to initial abg done p rior to bipap. pH noted 7.29 decreased from initial 7.4. Bipap reduced to 60% O2. NS 1 liter 500 ml per hour d/w Dr. Gage d/w Dr. Bruno. Will change setting 04/08/15 after discussion with him. aDmit to ICU at 15:30 Patient improved in ED. Has removed bipap mask and urinated on floor. Demands to be discharged. Requests AMA paperwork. AMA paperwork signs at 16:33p - Critical Care Total Time (In Min): 30 <Lucille Zimmerman B - Last Filed: 05/10/18 19:06> - Laboratory Results Result Diagrams: 05/10/18 12:00 05/10/18 12:00 Lab Results: pCO2 64 mm/Hg (35-45) H 05/10/18 12:33 pO2 544 mm/Hg (80-100) H 05/10/18 12:33 HCO3 26.8 mmol/L (21-28) 05/10/18 12:33 ABG pH 7.29 (7.35-7.45) L 05/10/18 12:33 ABG Total CO2 32.8 mmol/L (22-28) H 05/10/18 12:33 ABG O2 Saturation 100.2 % (95-98) H 05/10/18 12:33 ABG O2 Content 19.2 ML/dL (15-23) 05/10/18 12:33 ABG Base Excess 2.5 mmol/L (-2.0-3.0) 05/10/18 12:33 ABG Hemoglobin 13.5 g/dL (11.7-17.4) 05/10/18 12:33 ABG Carboxyhemoglobin 4.0 % (0.5-1.5) H 05/10/18 12:33 POC ABG HHb (Measured) -0.2 % (0.0-5.0) L 05/10/18 12:33 ABG Methemoglobin 2.8 % (0.0-3.0) 05/10/18 12:33 ABG O2 Capacity 19.2 mL/dL (16-24) 05/10/18 12:33 Vargas Test Yes 05/10/18 12:33 ABG Potassium 3.8 mmol/L (3.6-5.2) 05/10/18 12:02 A-a O2 Difference 89.0 mm/Hg 05/10/18 12:33 Hgb O2 Saturation 93.4 % (95.0-98.0) L 05/10/18 12:33 Sodium 131.0 mmol/L (132-148) L 05/10/18 12:02 Chloride 97.0 mmol/L (98-107) L 05/10/18 12:02 Glucose 314 mg/dL (75-110) H 05/10/18 12:02 Lactate 1.5 mmol/L (0.7-2.1) 05/10/18 12:02 Mechanical Rate 12 05/10/18 12:33 FiO2 100.0 % 05/10/18 12:33 Inspiratory BiPAP 12 05/10/18 12:33 Expiratory BiPAP 5 05/10/18 12:33 Troponin I < 0.0120 ng/mL (0.00-0.120) 05/10/18 12:00 NT-Pro-B Natriuret Pep 523 pg/ml (0-900) 05/10/18 12:00 Total Bilirubin 0.4 mg/dl (0.2-1.3) 05/10/18 12:00 AST 37 U/L (17-59) 05/10/18 12:00 ALT 33 U/L (21-72) 05/10/18 12:00 Alkaline Phosphatase 101 U/L (38-126) 05/10/18 12:00 Total Protein 8.0 G/DL (6.3-8.2) 05/10/18 12:00 Albumin 4.3 g/dL (3.5-5.0) 05/10/18 12:00 Globulin 3.7 gm/dL (2.2-3.9) 05/10/18 12:00 Albumin/Globulin Ratio 1.2 (1.0-2.1) 05/10/18 12:00 <Lalitha Horvath Y - Last Filed: 05/11/18 12:16> Disposition - Patient ED Disposition Is Patient to be Admitted: Yes - Disposition Disposition: Routine/Home Disposition Time: 16:38 <Lucille Zimmerman B - Last Filed: 05/10/18 19:06> <Lalitha Horvath - Last Filed: 05/11/18 12:16> - Clinical Impression Clinical Impression: Asthma exacerbation, Respiratory distress, Left against medical advice - Disposition Condition: FAIR
[2018-05-10] MEDS ORDERED: Magnesium Sulfate 2 gm/50 ml 2 GM/50 ML BAG IVPB ONE (11:14)
[2018-05-10] MEDS ORDERED: Magnesium Sulfate 2 gm/50 ml 2 GM/50 ML BAG ONE (11:24)
[2018-05-10 12:06] LABS: ABG ALLEN TEST YES; ARTERIAL BLOOD GAS HCO3 31.5 mmol/L (21-28); ARTERIAL BLOOD GAS O2 SAT 93.8 % (95-98); ARTERIAL BLOOD GAS PCO2 54 mm/Hg (35-45); ARTERIAL BLOOD GAS PH 7.42 (7.35-7.45); ARTERIAL BLOOD GAS PO2 54 mm/Hg (80-100); ARTERIAL BLOOD GAS TCO2 36.7 mmol/L (22-28)
[2018-05-10 12:17] LABS: BASO # 0.1 K/uL (0.0-0.2); BASO % 0.6 % (0.0-2.0); EOS # 0.1 K/uL (0.0-0.7); HEMOGLOBIN 12.4 g/dL (12.0-18.0); LYMPH % 8.7 % (20.0-40.0); MEAN CORPUSCULAR HEMOGLOBIN 29.8 pg (27.0-31.0); MEAN CORPUSCULAR HGB CONC 32.7 g/dL (33.0-37.0); MEAN PLATELET VOLUME 8.8 fl (7.2-11.7); MONO # 1.1 K/uL (0.0-0.8); MONO % 9.2 % (0.0-10.0); NEUT # 9.3 K/uL (1.8-7.0); NEUT % 80.5 % (50.0-75.0); PLATELET COUNT 298 K/uL (130-400); RBC 4.18 Mil/uL (4.40-5.90); RED CELL DISTRIBUTION WIDTH 13.1 % (11.5-14.5); WHITE BLOOD COUNT 11.6 K/uL (4.8-10.8)
[2018-05-10 12:29] LABS: ALB/GLOB RATIO 1.2 (1.0-2.1); ALBUMIN 4.3 g/dL (3.5-5.0); ALT/SGPT 33 U/L (21-72); AST/SGOT 37 U/L (17-59); BLOOD UREA NITROGEN 9 mg/dl (9-20); CALCIUM 9.1 mg/dL (8.4-10.2); GFR NON-AFRICAN AMERICAN > 60
[2018-05-10 12:41] LABS: B-TYPE NATRIURETIC PEPTIDE 523 pg/ml (0-900)
--- NOTE | 2018-05-10 12:57 | RAD ---
Date of service: 05/10/2018 HISTORY: Exacerbation of asthma. COMPARISON: 03/19/2015 FINDINGS: LUNGS: No active pulmonary disease. PLEURA: No significant pleural effusion identified, no pneumothorax apparent. CARDIOVASCULAR: No atherosclerotic calcification present Normal. OSSEOUS STRUCTURES: No significant abnormalities. VISUALIZED UPPER ABDOMEN: Normal. OTHER FINDINGS: None. IMPRESSION: No active disease. No significant interval change compared to the prior examination(s).
[2018-05-10 13:13] VITALS: RESP 21
[2018-05-10] MEDS ORDERED: Sodium Chloride 0.9% 1,000 ML IV STA (13:13)
[2018-05-10 13:14] LABS: ABG ALLEN TEST YES; ARTERIAL BLOOD GAS HCO3 26.8 mmol/L (21-28); ARTERIAL BLOOD GAS HEMOGLOBIN 13.5 g/dL (11.7-17.4); ARTERIAL BLOOD GAS O2 CAPACITY 19.2 mL/dL (16-24); ARTERIAL BLOOD GAS O2 CONTENT 19.2 ML/dL (15-23); ARTERIAL BLOOD GAS O2 SAT 100.2 % (95-98); ARTERIAL BLOOD GAS PCO2 64 mm/Hg (35-45); ARTERIAL BLOOD GAS PH 7.29 (7.35-7.45); ARTERIAL BLOOD GAS PO2 544 mm/Hg (80-100); ARTERIAL BLOOD GAS TCO2 32.8 mmol/L (22-28)
[2018-05-10 14:30] LABS: BASOPHIL 1 % (0-2); LYMPHOCYTE 11 % (20-50); MONOCYTE 7 % (0-10); NEUTROPHIL 81 % (42-75); TOTAL CELLS COUNTED 100
[2018-05-10 14:33] LABS: PLATELET ESTIMATE NORMAL (NORMAL)
[2018-05-10 15:11] VITALS: O2SAT 95
[2018-05-10 15:56] VITALS: PULSE 89
[2018-05-10 19:02] VITALS: BP 140/70; TEMP 98.1
--- NOTE | 2018-05-25 10:48 | CARD ---
APPROVED REPORT Date of service: 05/10/2018 EKG Measurement Heart [id number] MI [id number] <Conclusion> Sinus tachycardia Otherwise normal ECG
== END 2018-05-10 16:33 | disposition left against medical advice (07) ==
LOC: H.ER 09:57 → UNDOADMIN 15:09 → H.ERHOLD 15:09 → UNDODISIN 16:33
DX: J45.909 Unspecified asthma, uncomplicated (principal); R06.03 Acute respiratory distress
CPT/HCPCS: 71045; 80053; 82803; 83880; 84484; 85025; 87804; 93005; 94660; 99285; J2930; J7030